=== PATIENT | male | born 2000 | race Caucasian/White ===

== ENCOUNTER 2019-08-16 12:32 | Emergency (ER) | payer BC, MEDICAID ==
--- NOTE | 2019-08-16 12:53 | ER Document Report ---
ED Medical Screen (RME) - General Chief Complaint: Psych Problem Stated Complaint: PSYCH EVAL Time Seen by Provider: 08/16/19 12:50 Primary Care Provider: JAY LIZ [Primary Care Provider] - Follow up as needed Mode of Arrival: Ambulatory Information source: Patient, Parent Notes: 19-year-old male presents to ED for suicidal ideations. He has told his dad that he does not want to be here anymore. He states he does not smoke cigarettes or drink alcohol but he does smoke marijuana just about every day. He is on Prozac and BuSpar he has been diagnosed with depression anxiety and insomnia. I have greeted and performed a rapid initial assessment of this patient. A comprehensive ED assessment and evaluation of the patient, analysis of test results and completion of medical decision making process will be conducted by an additional ED providers. - Related Data Allergies/Adverse Reactions: No Known Allergies Allergy (Verified 08/16/19 12:49) Physical Exam - Vital signs Vitals: Temp Pulse Resp BP Pulse Ox 98.8 F 71 18 128/62 H 100 08/16/19 12:45 08/16/19 12:45 08/16/19 12:45 08/16/19 12:45 08/16/19 12:45 Course - Vital Signs Vital signs: Temp Pulse Resp BP Pulse Ox 98.8 F 71 18 128/62 H 100 08/16/19 12:45 08/16/19 12:45 08/16/19 12:45 08/16/19 12:45 08/16/19 12:45 Doctor's Discharge - Discharge Referrals: JAY LIZ [Primary Care Provider] - Follow up as needed
[2019-08-16 13:22] LABS: ABSOLUTE BASOPHILS # (AUTO) 0.1 10^3/uL (0.0-0.2); ABSOLUTE EOSINOPHILS # (AUTO) 0.1 10^3/uL (0.0-0.6); ABSOLUTE LYMPHOCYTES (AUTO) 2.3 10^3/uL (0.5-4.7); ABSOLUTE MONOCYTES (AUTO) 0.3 10^3/uL (0.1-1.4); ABSOLUTE NEUT (AUTO) 4.3 10^3/uL (1.7-8.2); BASOPHILS % (AUTO) 0.9 % (0-2); EOSINOPHILS % (AUTO) 1.1 % (0-6); HEMATOCRIT 48.3 % (37.9-51.0); HEMOGLOBIN 16.7 g/dL (13.5-17.0); LYMPHOCYTES % (AUTO) 32.8 % (13-45); MEAN CORPUSCULAR HEMOGLOBIN 30.5 pg (27.0-33.4); MEAN CORPUSCULAR HGB CONC 34.7 g/dL (32.0-36.0); MEAN CORPUSCULAR VOLUME 88 fl (80-97); MONOCYTES % (AUTO) 4.7 % (3-13); PLATELET COUNT 240 10^3/uL (150-450); RED BLOOD COUNT 5.48 10^6/uL (4.35-5.55); RED CELL DISTRIBUTION WIDTH 13.4 % (11.5-14.0); SEGMENTED NEUTROPHILS % (AUTO) 60.5 % (42-78); TOTAL CELLS COUNTED % (AUTO) 100 %; WHITE BLOOD COUNT 7.1 10^3/uL (4.0-10.5)
[2019-08-16 13:36] LABS: APPEARANCE,URINE SLIGHTLY-CLOUDY; BILIRUBIN,URINE NEGATIVE (NEGATIVE); COLOR,URINE YELLOW; GLUCOSE, URINE NEGATIVE (NEGATIVE); KETONES,URINE TRACE mg/dL (NEGATIVE); LEUKOCYTE ESTERASE,URINE NEGATIVE (NEGATIVE); NITRITE,URINE NEGATIVE (NEGATIVE); PROTEIN,URINE NEGATIVE (NEGATIVE); URINE SPECIFIC GRAVITY 1.018
[2019-08-16 13:45] LABS: ALBUMIN 5.1 g/dL (3.5-5.0); ALKALINE PHOSPHATASE 60 U/L (38-126); ANION GAP 11 (5-19); ASPARTATE AMINO TRANSFERASE 18 U/L (17-59); BILIRUBIN,DIRECT 0.1 mg/dL (0.0-0.4); BILIRUBIN,TOTAL 0.6 mg/dL (0.2-1.3); BLOOD UREA NITROGEN 9 mg/dL (7-20); CALCIUM 10.1 mg/dL (8.4-10.2); CARBON DIOXIDE 27 mmol/L (22-30); CHLORIDE 105 mmol/L (98-107); GLUCOSE 92 mg/dL (75-110); POTASSIUM 4.5 mmol/L (3.6-5.0); TOTAL PROTEIN 7.9 g/dL (6.3-8.2)
[2019-08-16 13:46] LABS: ACETAMINOPHEN < 10 ug/mL (10-30); ALCOHOL < 10 mg/dL (NONE DETECTED); SALICYLATE < 1.0 mg/dL (2.0-20.0)
[2019-08-16 13:59] LABS: URINE AMPHETAMINES SCREEN NEGATIVE; URINE BARBITURATES SCREEN NEGATIVE; URINE BENZODIAZEPINES SCREEN NEGATIVE; URINE COCAINE SCREEN NEGATIVE; URINE MARIJUANA (THC) SCREEN UNCONFIRMED POSITIVE; URINE METHADONE SCREEN NEGATIVE; URINE PHENCYCLIDINE SCREEN NEGATIVE
--- NOTE | 2019-08-16 16:06 | ER Document Report ---
ED Psych Disorder / Suicide - General Chief Complaint: Suicidal Ideation Stated Complaint: PSYCH EVAL Time Seen by Provider: 08/16/19 12:50 Primary Care Provider: JAY LIZ [NO LOCAL MD] - Follow up as needed Mode of Arrival: Ambulatory Notes: Patient is a 19-year-old male presents to the emergency department with his father for concerns of suicidal ideations. Father voices he feels as though the patient has been more depressed recently. States 2 months ago was started on Prozac, approximately 1 month ago Prozac was increased and BuSpar was added. Father voices he has noted a "decline" since change of medications 1 month ago. Father voices patient stated today "I just don't want to be here anymore." Patient voices he meant "I do not want to be in this mindset." Patient is cur rently denying any suicidal ideations or homicidal ideations. TRAVEL OUTSIDE OF THE [place] IN LAST 30 DAYS: No - Related Data Allergies/Adverse Reactions: No Known Allergies Allergy (Verified 08/16/19 12:49) Past Medical History - General Information source: Patient, Parent - Social History Smoking Status: Current Every Day Smoker Chew tobacco use (# tins/day): No Frequency of alcohol use: None Drug Abuse: Marijuana Family History: Reviewed & Not Pertinent Patient has suicidal ideation: No Patient has homicidal ideation: No Review of Systems - Review of Systems Constitutional: denies: Fever EENT: No symptoms reported Cardiovascular: No symptoms reported Respiratory: No symptoms reported Gastrointestinal: No symptoms reported Genitourinary: No symptoms reported Male Genitourinary: No symptoms reported Musculoskeletal: No symptoms reported Skin: No symptoms reported Hematologic/Lymphatic: No symptoms reported Neurological/Psychological: See HPI Physical Exam - Vital signs Vitals: Temp Pulse Resp BP Pulse Ox 98.8 F 71 18 128/62 H 100 08/16/19 12:45 08/16/19 12:45 08/16/19 12:45 08/16/19 12:45 08/16/19 12:45 - Notes Notes: GENERAL: Alert, interacts well. No acute distress. HEAD: Normocephalic, atraumatic. EYES: Pupils equal, round, and reactive to light. Extraocular movements intact. ENT: Oral mucosa moist, tongue midline. NECK: Full range of motion. Supple. Trachea midline. LUNGS: Clear to auscultation bilaterally, no wheezes, rales, or rhonchi. No respiratory distress. HEART: Regular rate and rhythm. No murmur ABDOMEN: Soft, non-tender. Non-distended. Bowel sounds present in all 4 quadrants. EXTREMITIES: Moves all 4 extremities spontaneously. No edema, normal radial and dorsalis pedis pulses bilaterally. No cyanosis. BACK: no cervical, thoracic, lumbar midline tenderness. No saddle anesthesia, normal distal neurovascular exam. NEUROLOGICAL: Alert and oriented x3. Normal speech. cranial nerves II through XII grossly intact PSYCH: flat affect, depressed mood. SKIN: Warm, dry, normal turgor. No rashes or lesions noted. Course - Re-evaluation Re-evalutation: 08/16/19 16:02 IVC paperwork filled out by Kirt Billings, signed by Dr. Farris. - Vital Signs Vital signs: Temp Pulse Resp BP Pulse Ox 98.8 F 71 18 128/62 H 100 08/16/19 12:45 08/16/19 12:45 08/16/19 12:45 08/16/19 12:45 08/16/19 12:45 - Laboratory Result Diagrams: 08/16/19 13:04 08/16/19 13:04 Laboratory results interpreted by me: 08/16/19 08/16/19 13:04 13:20 Albumin 5.1 H Urine Ketones TRACE H Urine Urobilinogen 2.0 H Salicylates < 1.0 L Acetaminophen < 10 L Discharge - Discharge Clinical Impression: Suicidal ideations Disposition: PSYCH HOSP/UNIT Referrals: LOCALMD,NO [NO LOCAL MD] - Follow up as needed
[2019-08-16] MEDS: OLANZAPINE 2.5 MG TABLET PO SCH (21:56)
[2019-08-17] MEDS: OLANZAPINE 2.5 MG TABLET PO SCH (09:10)
[2019-08-17] MEDS ORDERED: FLUOXETINE HCL 20 MG CAPSULE PO SCH (10:00)
[2019-08-17] MEDS ORDERED: BUSPIRONE HCL 10 MG TABLET PO SCH (10:00)
--- NOTE | 2019-08-17 11:33 | ER Document Report ---
Doctor's Note Notes: 08/17/19 11:34 Chart reviewed patient rounded on. Patient is calm. Reports he was having a conversation with his father and reported that he did not want to be here anymore. He reports that he just did not want to be around his dad at that time but his dad took it as he was suicidal. Patient denies suicidal ideation or homicidal ideation. Reports he is never attempted suicide. Reports he does have a history of depression anxiety is currently taking Prozac and Zyprexa. He reports Zyprexa was recently changed from BuSpar. Patient is calm denies suicidal or homicidal ideations. Reports he does not have a job and feels lives at home with his dad. PHYSICAL EXAMINATION: GENERAL: Well-appearing and in no acute distress calm HEAD: Atraumatic, normocephalic. EYES: Pupils equal round and reactive to light, extraocular movements intact, sclera anicteric, conjunctiva are normal. ENT: nares patent, Moist mucous membranes. NECK: Normal range of motion, supple without lymphadenopathy LUNGS: CTAB and equal. No wheezes rales or rhonchi. HEART: Regular rate and rhythm without murmurs ABDOMEN: Soft, no tenderness. No guarding, no rebound EXTREMITIES: Normal range of motion, no pitting edema. No cyanosis. NEUROLOGICAL: Cranial nerves grossly intact. Normal sensory/motor exams. PSYCH: Normal mood, normal affect. Answers all questions appropriately SKIN: Warm, Dry, normal turgor, no rashes or lesions noted Patient denies suicidal homicidal ideations. He is calm reports he is never attempted suicide and does not plan to. Labs unremarkable EKG normal sinus rhythm no ST elevation no T wave inv ersion.Patient is medically cleared. We will plan on discharging him back with his father. Follow-up with community resources 08/16/19 13:04 08/16/19 13:04 MCV 88 fl (80-97) 08/16/19 13:04 MCH 30.5 pg (27.0-33.4) 08/16/19 13:04 MCHC 34.7 g/dL (32.0-36.0) 08/16/19 13:04 RDW 13.4 % (11.5-14.0) 08/16/19 13:04 Seg Neutrophils % 60.5 % (42-78) 08/16/19 13:04 Chloride 105 mmol/L (98-107) 08/16/19 13:04 Carbon Dioxide 27 mmol/L (22-30) 08/16/19 13:04 Anion Gap 11 (5-19) 08/16/19 13:04 Est GFR ( Amer) > 60 (>60) 08/16/19 13:04 Glucose 92 mg/dL (75-110) 08/16/19 13:04 Calcium 10.1 mg/dL (8.4-10.2) 08/16/19 13:04 Total Bilirubin 0.6 mg/dL (0.2-1.3) 08/16/19 13:04 AST 18 U/L (17-59) 08/16/19 13:04 Alkaline Phosphatase 60 U/L (38-126) 08/16/19 13:04 Total Protein 7.9 g/dL (6.3-8.2) 08/16/19 13:04 Albumin 5.1 g/dL (3.5-5.0) H 08/16/19 13:04 Urine Color YELLOW 08/16/19 13:20 Urine Appearance SLIGHTLY-CLOUDY 08/16/19 13:20 Urine pH 7.0 (5.0-9.0) 08/16/19 13:20 Ur Specific [place] 1.018 08/16/19 13:20 Urine Protein NEGATIVE mg/dL (NEGATIVE) 08/16/19 13:20 Urine Glucose (UA) NEGATIVE mg/dL (NEGATIVE) 08/16/19 13:20 Urine Ketones TRACE mg/dL (NEGATIVE) H 08/16/19 13:20 Urine Blood NEGATIVE (NEGATIVE) 08/16/19 13:20 Urine Nitrite NEGATIVE (NEGATIVE) 08/16/19 13:20 Ur Leukocyte Esterase NEGATIVE (NEGATIVE) 08/16/19 13:20 Urine WBC (Auto) 1 /HPF 08/16/19 13:20 Urine RBC (Auto) 6 /HPF 08/16/19 13:20 08/17/19 12:13 Patient to be discharged to the care of his father. Zyprexa 2.5 mg p.o. twice daily ordered for patient dispense #[id number] until his appointment with mental health. He has an outpatient appointment with [facility] on August 29.
[2019-08-17 12:27] VITALS: BP 129/75
--- NOTE | 2019-08-17 23:58 | EKG REPORT ---
SEVERITY:- NORMAL ECG - SINUS RHYTHM : Confirmed by: Betty Santiago 17-Aug-2019 23:57:38
== END 2019-08-17 12:30 | disposition home or self-care (01) ==
LOC: ER 12:32
DX: R45.851 Suicidal ideations (principal); F41.9 Anxiety disorder, unspecified; F32.9 Major depressive disorder, single episode, unspecified; Z79.899 Other long term (current) drug therapy; F17.200 Nicotine dependence, unspecified, uncomplicated
CPT/HCPCS: 93005; 99284; 36415; 80307 ×4; 85025; 80053; 81001; 93010; J3490 ×4